=== PATIENT | female | born 1965 | race Caucasian/White ===

== ENCOUNTER 2018-10-05 13:21 | Emergency (ER) | payer OTHER ==
[~2018-10-05] VITALS: Ht 160 cm; Wt 80.0 kg
[~2018-10-05 13:21] MED LIST: CARI350T PO; FOLI-49 PO; METH10TA2 PO; ONDA4TAB8 PO; THIA100T10 PO
[2018-10-05 13:26] VITALS: Ht 160 cm; Wt 80.0 kg
[2018-10-05] MEDS ORDERED: SOD CHLORIDE 0.9% 2,400 ML IV ONE (14:22)
[2018-10-05] MEDS ORDERED: NEOMYC/POLYMYX/BACIT 30 GM OINT TOP ONE (14:30)
[2018-10-05] MEDS ORDERED: VANCOMYCIN 1 GM (PMX) 250 ML IVPB ONE (14:30)
[2018-10-05] MEDS ORDERED: NEOMYC/POLYMYX/BACIT 0.9 GM OINT TOP SCH (17:00)
[2018-10-05] MEDS ORDERED: FURO-109 PO (17:20)
[2018-10-05] MEDS ORDERED: BISM262O23 PO (17:20)
[2018-10-05] MEDS ORDERED: CLIN300C10 PO (17:20)
--- NOTE | 2018-10-05 17:24 | ERD ---
ER Documentation Chief Complaint Chief Complaint skin rashes/wounds HPI 53-year-old female presents with a history of recurrent skin infections in her lower extremities. She was hospitalized approximately 1 month ago. She has been fine more or less for the last month. She is recurrent wheezing and ulcerative lesions on her bilateral shins. She has scattered lesions on her upper extremities of various stages of healing as well. She denies fevers, vomiting, abdominal pain, shortness of breath or chest pain. Patient has been intermittently homeless and living in hotels she is here with her spouse who has similar lesions on his lower extremities. Patient states that the most recent antibiotic prescribed for this, doxycycline gave her vomiting diarrhea. ROS All systems reviewed and are negative except as per history of present illness. Medications Home Meds Active Scripts Bismuth Subsalicylate* (Pepto-Bismol*) 262 Mg/15 Ml Oral.susp, 15 ML PO Q3H PRN for DIARRHEA for 5 Days, ML Prov:FAREED AGUILAR MD 10/05/18 Clindamycin Hcl* (Clindamycin Hcl*) 300 Mg Capsule, 300 MG PO QID for 10 Days, CAP Prov:FAREED AGUILAR MD 10/05/18 Furosemide* (Lasix*) 40 Mg Tablet, 40 MG PO DAILY for 5 Days, #5 TAB Prov:FAREED AGUILAR MD 10/05/18 Ondansetron Hcl* (Zofran*) 4 Mg Tablet, 4 MG PO Q8 for Nausea, vomiting , #50 TAB Prov:CORBY VARGHESE MD 01/31/15 Folic Acid* (Folic Acid*) 1 Mg Tablet, 1 MG PO DAILY, #60 TAB Prov:CORBY VARGHESE MD 01/31/15 Thiamine* (Thiamine*) 100 Mg Tablet, 100 MG PO DAILY, #60 TAB Prov:CORBY VARGHESE MD 01/31/15 Reported Medications Carisoprodol* (Soma*) 350 Mg Tablet, 350 MG PO TID, TAB 01/29/15 Methadone Hcl* (Methadone*) 10 Mg Tab, 65 MG PO DAILY, TAB 11/16/13 Allergies Allergies: Coded Allergies: metoclopramide (Verified Allergy, Mild, 10/05/18) Sulfa (Sulfonamide Antibiotics) (Verified Allergy, Unknown, RASH, 10/05/18) PMhx/Soc History of Surgery: Yes (laparoscopy x6, eye sx, back sx, c section x2) Anesthesia Reaction: No Hx Neurological Disorder: No Hx Respiratory Disorders: No Hx Cardiac Disorders: No Hx Psychiatric Problems: No Hx Miscellaneous Medical Probl: Yes (endometriosis, uterine fibroid,anxiety, chronic pain on methadone) Hx Alcohol Use: Yes Hx Substance Use: No Hx Tobacco Use: Yes Smoking Status: Current some day smoker FmHx Family History: No diabetes, No coronary disease, No other Physical Exam Vitals Vital Signs Date Temp Pulse Resp B/P (MAP) Pulse Ox O2 O2 Flow FiO2 Time Delivery Rate 10/05/18 98.4 83 18 130/82 95 13:26 (98) Physical Exam Const: No acute distress. Obese. Head: Atraumatic Eyes: Normal Conjunctiva ENT: Normal External Ears, Nose and Mouth. Neck: Full range of motion. No meningismus. Resp: Clear to auscultation bilaterally Cardio: Regular rate and rhythm, no murmurs Abd: Soft, non tender, non distended. Normal bowel sounds Skin: No petechiae or rashes Back: No midline or flank tenderness Ext: No cyanosis, or edema. Scattered 1-2 cm weeping ulcerative lesions on the anterior shins and lower extremities with surrounding erythema. No calf swelling or Homans sign. No restricted range of motion weakness. Scattered lesions in various stages of healing is on the forearms as well. Neur: Awake and alert Psych: Normal Mood and Affect Result Diagram: 10/05/18 1433 10/05/18 1433 Results 24 hrs Laboratory Tests Test 10/05/18 14:33 White Blood Count 7.2 10^3/ul Red Blood Count 4.12 10^6/ul Hemoglobin 14.8 g/dl Hematocrit 45.2 % Mean Corpuscular Volume 109.7 fl Mean Corpuscular Hemoglobin 35.9 pg Mean Corpuscular Hemoglobin Concent 32.7 g/dl Red Cell Distribution Width 14.4 % Platelet Count 196 10^3/UL Mean Platelet Volume 9.5 fl Immature Granulocytes % 0.300 % Neutrophils % 63.3 % Lymphocytes % 22.1 % Monocytes % 11.4 % Eosinophils % 2.1 % Basophils % 0.8 % Nucleated Red Blood Cells % 0.0 /100WBC Immature Granulocytes # 0.020 10^3/ul Neutrophils # 4.6 10^3/ul Lymphocytes # 1.6 10^3/ul Monocytes # 0.8 10^3/ul Eosinophils # 0.2 10^3/ul Basophils # 0.1 10^3/ul Nucleated Red Blood Cells # 0.0 10^3/ul Sodium Level 138 mmol/L Potassium Level 3.9 mmol/L Chloride Level 96 mmol/L Carbon Dioxide Level 36 mmol/L Anion Gap 6 Blood Urea Nitrogen 9 mg/dl Creatinine 0.58 mg/dl Est Glomerular Filtrat Rate mL/min > 60 mL/min Glucose Level 81 mg/dl Calcium Level 8.9 mg/dl Total Bilirubin 1.2 mg/dl Direct Bilirubin 0.00 mg/dl Indirect Bilirubin 1.2 mg/dl Aspartate Amino Transf (AST/SGOT) 63 IU/L Alanine Aminotransferase (ALT/SGPT) 33 IU/L Alkaline Phosphatase 102 IU/L Total Protein 7.3 g/dl Albumin 3.6 g/dl Globulin 3.70 g/dl Albumin/Globulin Ratio 0.97 Current Medications Medications Dose Sig/Aubrey Start Time Status Last (Trade) Ordered Route PRN Stop Time Admin Dose Reason Admin Vancomycin 250 ml @ ONCE ONCE 10/05/18 DC 10/05/18 HCl 125 mls/hr IVPB 14:30 16:09 10/05/18 16:29 Sodium 2,400 ml @ Q0M ONCE 10/05/18 DC 10/05/18 Chloride 0 mls/hr IV 14:22 16:05 10/05/18 14:25 Neomycin/ 1 applic ONCE ONCE 10/05/18 DC Polymyxin/ TOP 14:30 Bacitracin 10/05/18 14:31 (Neosporin Topical Oint) Neomycin/ 1 applic ONCE TOP 10/05/18 10/05/18 Polymyxin/ 17:00 16:30 Bacitracin 10/06/18 23:59 (Neosporin (Ud Pkt)) Procedures/MDM Patient presents with recurrent intermittent weeping skin lesions on the upper and lower extremities over the last several months. She currently has no SIRS criteria, signs of sepsis. CBC is normal. She has no evidence of tachycardia or fever. Patient likely has recurrent staph infections of the extremities. There is no signs or symptoms to suggest DVT. She was given vancomycin 1 g IV and will treated with clindamycin given reactions to doxycycline as well as history of allergy to sulfa, wound care and instructed to return for worsening redness, fevers, new worsening symptoms. Patient was requesting a short course of Lasix for recurrent dependent lower extremity edema as well and will give a short course. Patient denies any history of CHF, shortness of breath, additional concerning symptoms. The patient was stable with no new complaints during the ER course. Clinically, there is no current evidence to suggest meningitis, sepsis, acute abdomen, pneumonia, stroke, acute coronary syndrome, pulmonary embolism, aortic dissection or any other emergent condition appearing to require further evaluation or hospitalization. Patient counseled regarding my diagnostic impression and care plan. Prior to discharge all questions answered. Pt agrees with treatment plan and understands strict return precautions. Pt is instructed to follow up with primary care provider within 24- 48 hours. Precautionary instructions provided including instructions to return to the ER if not improving or for any worsening or changing symptoms or concerns. Departure Diagnosis: Primary Impression: Cellulitis Site of cellulitis: unspecified site Qualified Codes: L03.90 - Cellulitis, unspecified Condition: Stable FAREED AGUILAR MD Oct 05, 2018 17:24
[2018-10-05] MEDS ORDERED: FUROSEMIDE 20 MG TAB PO ONE (19:00)
[2018-10-05 19:20] VITALS: BP 163/100; PULSE 73; RESP 18
== END 2018-10-05 19:25 | disposition home or self-care (01) ==
LOC: FTE 13:21
DX: L03.90 Cellulitis, unspecified (principal); F17.210 Nicotine dependence, cigarettes, uncomplicated
CPT/HCPCS: 36415; 80053; 85025; 87040; 96365; 96366; J3370; J7030; Z7502; Z7610